=== PATIENT | male | born 1930 | race Caucasian/White ===

== ENCOUNTER 2018-04-01 08:17 | Day surgery (SDC) | payer OTHER ==
--- NOTE | 2018-03-28 11:28 | RAD REPORT ---
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 COMPARISON: Chest Single View dated 11/20/2016; CHEST PA AND LAT 2 VIEW dated 01/03/2011; CHEST PA AND LAT 2 VIEW dated 06/20/2001 FINDINGS: The lungs are clear. The heart is mildly prominent size with sternotomy wires present. No displaced fractures. IMPRESSION: No acute or concerning finding suspected.
[2018-03-28 11:30] LABS: Absolute Lymphocytes (CBC) 1.5 K/uL (0.7-4.9); Absolute Monocytes 0.6 K/uL (0.1-1.3); Absolute Neutrophil 4.9 K/uL (1.8-8.0); Basophils % 1.2 % (0-1.3); Eosinophils % 1.6 % (0-4.4); Hematocrit 44.4 % (39.6-49.0); Lymphocytes % 20.6 % (15.3-44.8); MCH 29.8 pg (27.0-35.0); MPV 8.7 fL (7.6-11.3); Monocytes % 8.6 % (3.3-12.3); RBC Red Blood Cell Count 5.05 M/uL (4.33-5.43)
[2018-03-28 11:42] LABS: Protime INR 0.96
[2018-03-28 11:57] LABS: Potassium 4.3 mmol/L (3.5-5.1)
--- NOTE | 2018-03-28 14:26 | EKG ---
Test Date: 2018-03-28 Test Time: 11:31:13 Cuffer: NEGRA MEASUREMENT RESULTS: Intervals: Rate: 61 SD: 190 QRSD: 146 QT: 448 QTc: 450 [place]: P: 38 SD: 190 QRS: -53 T: -5 INTERPRETIVE STATEMENTS: Normal sinus rhythm Right bundle branch block Left anterior fascicular block Bifascicular block Abnormal ECG Compared to ECG 11/20/2016 02:29:02 Myocardial infarct finding no longer present Bifascicular block still present Electronically Signed On 03-28-18 14:25:55 CDT by Nelson Marti
[2018-04-01] MEDS ORDERED: NA CHLORIDE 0.9% 500 ML ONE (08:57)
[2018-04-01] MEDS ORDERED: FENTANYL CITR 100 MCG/2 ML ONE (10:52)
[2018-04-01] MEDS ORDERED: ATROPINE SULF 1 MG/10 ML SYR IV ONE (10:52)
[2018-04-01] MEDS ORDERED: MIDAZOLAM HCL 2 MG/2 ML INJ ONE (10:52)
[2018-04-01] MEDS ORDERED: NA CHLORIDE 0.9% 0 ML ONE (10:52)
--- NOTE | 2018-04-01 22:28 | OP ---
Surgeon: Jamil Kong MD Indications: Admitted as an outpatient to my service to have an abdominal angiogram with heart cierra terization because of coronary artery disease and abdominal aortic aneurysm. Procedure Note: Mr. Garza is 87. He was brought to the slabber as an outpatient, prepped and drape d in the routine sterile fashion, given 2 mg of Versed for IV sedation. Right common femoral artery access was obtained with a 6-Sami sheath. Selective coronary arteriogram was performed with Judkin s catheter left and right. He was found to have 100% occlusion of his LAD, 100% occlusion of the RCA , 70% left main. The RCA catheter 6-Sami Damaris was used to cannulate the SONG. The SONG was pat ent. They were small distal to the anastomosis side in the LAD zone. There was some diffuse disease . The graft to the OM was patent. RCA was 100%. There were collaterals to the PDA from the left sy stem and the circ system. The right coronary artery is nondominant. Abdominal angiogram was done th en selectively using a pigtail above the renals. The renals were normal. There was a large aneurysm extending approximately from the renal down to the iliac about 12 cm long. 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 Measurements are pending. There were no complications or blood loss. Total conscious sedation was 45 minutes. Postoperative Diagnosis: Severe coronary artery disease, severe abdominal aortic aneurysm 6.1 x 5.4 by ultrasound testing. Plan: Plan is for possible EVAR versus surgical abdominal aortic aneurysm repair. Operators: Jamil Kong M.D. and Lelo Keating. The case will be discussed with the family and the patient. A CD will be given to the patient. NATALIE/GARLAND Voice ID: [id number] Report ID: [id number]
== END 2018-04-01 14:09 | disposition home or self-care (01) ==
LOC: CCL 08:17
DX: I71.4 Abdominal aortic aneurysm, without rupture (principal); I25.10 Atherosclerotic heart disease of native coronary artery without angina pectoris; I25.82 Chronic total occlusion of coronary artery; I65.22 Occlusion and stenosis of left carotid artery; E78.6 Lipoprotein deficiency; K21.9 Gastro-esophageal reflux disease without esophagitis; Z95.1 Presence of aortocoronary bypass graft; Z87.891 Personal history of nicotine dependence
CPT/HCPCS: 36415; 71046; 75630; 80048; 85025; 85610; 85730; 93005; 93455; C1893; J2250; J3010; 36200; J0583

== ENCOUNTER 2018-08-25 06:15 | Day surgery (SDC) | payer OTHER ==
--- OUTSIDE RECORDS SUMMARY | 2018-08-25 06:38 | XMS REPORT | Clinical Summary ---
:1930 Author Organization [facility] Address [address] [place] [address] Care Team Providers Name Role Phone Unavailable Primary Care Provider Unavailable Allergies No Known Allergies Medications Medication Sig Dispensed Refills Start Date End Date Status aspirin 81 MG chewable Take 81 mg by 0 Active tablet mouth daily. ranitidine (ZANTAC) 150 Take 150 mg by 0 Active MG capsule mouth daily. simvastatin (ZOCOR) 20 Take 20 mg by 0 Active MG tablet mouth nightly. metoprolol (TOPROL-XL) Take 50 mg by 0 Active 50 MG 24 hr tablet mouth daily. Active Problems Not on file Encounters Date Type Specialty Care Team Description 07/29/2018 Hospital Encounter Radiology Carson Rocha, Abdominal aortic aneurysm (AAA) without rupture (HCC) 07/28/2018 Outside Orders Carson Rocha Abdominal aortic aneurysm (AAA) without rupture (HCC) (Primary Dx) after 08/24/2017 Social History Tobacco Use Types Packs/Day Years Used Date Never Assessed Sex Assigned at Date Recorded Not on file Job Start Date Occupation Industry Not on file Not on file Not on file Travel History Travel Start Travel End No recent travel history available. Last Filed Vital Signs Not on file Plan of Treatment Date Type Specialty Care Team Description 09/02/2018 Hospital Encounter Diego Newman MD [address] [place] [address] 09/02/2018 Surgery Diego Newman EVAR EXCLUSION [facility] - MD [place] PROC ONLY [address] [place] [address] Procedures Procedure Name Priority Date/Time Associated Diagnosis Comments CT/CTA ABDOMEN & Routine 07/29/2018 2:20 PM Results for this PELVIS BED MAKER procedure are in the results section. POCT-CREATININE Routine 07/29/2018 2:13 PM Results for this BED MAKER procedure are in the results section. after 08/24/2017 Results CTA abdomen & pelvis (07/29/2018 2:20 PM BED MAKER) Narrative Performed At Addendum Begins [facility] REPORT STATUS:A I have reviewed the non-vascular findings, and agree with Dr. Green's interpretation. In addition, note is made of colonic diverticulosis, most pronounced in the sigmoid colon. Signed: George Cantor MD Report Verified Date/Time:07/30/2018 10:20:04 Reading Location: [address] Ortho Consult Reading Room Addendum Ends FINAL REPORT CTA of the abdomen and pelvis dated 07/29/2018 2:24 PM Comparison:None available History:88 years old Male with abdominal aortic aneurysm for planning endovascular stent placement, the study is performed to avoid invasive procedure. TECHNIQUE: Spiral acquisition before and during intravenous contrast administration using a [place] CT 660 CT scanner. Images were obtained before and during the dynamic passage of intravenous contrast material.Multi-planar 3-D volume-rendering reconstruction was performed using an independent workstation interactively by the interpreting physician as well as the 3-D specialist for optimal visualization of the abdominal aorta and the pelvic arteries as well as its proximal branches. Please refer to the contrast sheet scanned in the EPIC system for the amount and route of contrast given. This exam was performed according to our departmental dose-optimization programme, which includes automated exposure control, adjustment of the mA and/or kV according to patient size and/or use of iterative reconstruction technique. Dose modulation, iterative reconstruction, and/or weight based adjustment of the mA/kV was utilized to reduce the radiation dose to as low as reasonably achievable. RESULT: Potential study limitations: None. LIMITED CHEST: The visualized chest wall is unremarkable.The visualized lungs reveal no acute abnormalities. VASCULAR WITH ADVANCED 3-D OFF-LINE POSTPROCESSING: The abdominal aorta is normal in course with moderate diffuse calcific atherosclerotic changes near the mesenteric and renal segments. Aneurysmal infrarenal abdominal aorta with partially thrombosed lumen, measuring 5.7 x 6.1 cm at its maximal diameter. There is no acute aortic pathology. The abdominal aorta measures: 2.5 x 2.7 cm at the supra-mesenteric segment 2.2 x 2.6 cm at the mesenteric segment 2.6 x 2.6 cm at the renal segment 5.7 x 6.1 cm at the mid infrarenal segment 1.9 x 2.6 cm at the aortic bifurcation The celiac axis, SMA, and YENY are patent.There are single renal arteries bilaterally, both of which appear patent. Pelvic arteries are moderately tortuous with mild to moderate calcification predominantly involving the common iliac arteries. The right common iliac artery has moderate eccentric atherosclerotic changes with a minimal luminal diameter measuring 0.7 x 1.1 cm. Beyond this segment of the right common iliac, external iliac and right common femoral arteries are normal in caliber with minimal calcific atherosclerotic changes. The proximal segment of the left common iliac artery is aneurysmal measuring 2.3 x 2.4 cm. Beyond this segment the left common iliac, external iliac and left common femoral arteries are normal in caliber with minimal calcific atherosclerotic changes Minimal pelvic vessel calibers are as follows: *0.7 x 1.1 cm at the right common iliac artery *2.3 x 2.4 cm at the left common iliac artery *0.9 x 0.9 cm at the right external iliac artery *0.9 x 0.9 cm at the left external iliac artery The celiac axis, SMA, and YENY are patent.There are single renal arteries bilaterally, both of which appear patent. 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 ABDOMEN: The liver, gallbladder, spleen, and pancreas appear normal. Evidence of prior cholecystectomy with associated surgical clips. The adrenal glands appear normal.Both kidneys are normal in size, shape, and density.There is no abnormal mass or hydronephrosis. PELVIS: There is no significant retroperitoneal adenopathy.No free fluid or free air within the abdomen or pelvis. The bowel appears unremarkable on this non-GI contrast examination. The urinary bladder appears normal.There are scattered phleboliths within the deep pelvis. Enlarged prostate gland with mild punctate calcification. IMPRESSION: 1.The abdominal aorta is normal in course with moderate diffuse calcific atherosclerotic changes near the mesenteric and renal segments. Aneurysmal infrarenal abdominal aorta with partially thrombosed lumen, measuring 5.7 x 6.1 cm at its maximal diameter. There is no acute aortic pathology.No acute abdominal aortic pathology. 2. The right common iliac artery has moderate eccentric atherosclerotic changes with a minimal luminal diameter measuring 0.7 x 1.1 cm 3. The proximal segment of the left common iliac artery is aneurysmal measuring 2.3 x 2.4 cm. 4. 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 An addendum will be dictated regarding the non-vascular findings as the Marine Services Technician Radiologist. Signed: Gunnar Green MD Report Verified Date/Time:07/29/2018 17:30:35 Reading Location: [facility] [id number] Cardiology MRI Procedure Note Interface, External Ris In - 07/30/2018 10:22 AM BED MAKER Addendum Begins REPORT STATUS:A I have reviewed the non-vascular findings, and agree with Dr. Green's interpretation. In addition, note is made of colonic diverticulosis, most pronounced in the sigmoid colon. Signed: George Cantor MD Report Verified Date/Time: 07/30/2018 10:20:04 Reading Location: [facility] [id number] Ortho Consult Reading Room Addendum Ends FINAL REPORT CTA of the abdomen and pelvis dated 07/29/2018 2:24 PM Comparison: None available History: 88 years old Male with abdominal aortic aneurysm for planning endovascular stent placement, the study is performed to avoid invasive procedure. TECHNIQUE: Spiral acquisition before and during intravenous contrast administration using a [place] CT [address] scanner. Images were obtained before and during the dynamic passage of intravenous contrast material. Multi-planar 3-D volume-rendering reconstruction was performed using an independent workstation interactively by the interpreting physician as well as the 3-D specialist for optimal visualization of the abdominal aorta and the pelvic arteries as well as its proximal branches. Please refer to the contrast sheet scanned in the EPIC system for the amount and route of contrast given. This exam was performed according to our departmental dose-optimization programme, which includes automated exposure control, adjustment of the mA and/or kV according to patient size and/or use of iterative reconstruction technique. Dose modulation, iterative reconstruction, and/or weight based adjustment of the mA/kV was utilized to reduce the radiation dose to as low as reasonably achievable. RESULT: Potential study limitations: None. LIMITED CHEST: The visualized chest wall is unremarkable. The visualized lungs reveal no acute abnormalities. VASCULAR WITH ADVANCED 3-D OFF-LINE POSTPROCESSING: The abdominal aorta is normal in course with moderate diffuse calcific atherosclerotic changes near the mesenteric and renal segments. Aneurysmal infrarenal abdominal aorta with partially thrombosed lumen, measuring 5.7 x 6.1 cm at its maximal diameter. There is no acute aortic pathology. The abdominal aorta measures: 2.5 x 2.7 cm at the supra-mesenteric segment 2.2 x 2.6 cm at the mesenteric segment 2.6 x 2.6 cm at the renal segment 5.7 x 6.1 cm at the mid infrarenal segment 1.9 x 2.6 cm at the aortic bifurcation The celiac axis, SMA, and YENY are patent. There are single renal arteries bilaterally, both of which appear patent. Pelvic arteries are moderately tortuous with mild to moderate calcification predominantly involving the common iliac arteries. The right common iliac artery has moderate eccentric atherosclerotic changes with a minimal luminal diameter measuring 0.7 x 1.1 cm. Beyond this segment of the right common iliac, external iliac and right common femoral arteries are normal in caliber with minimal calcific atherosclerotic changes. The proximal segment of the left common iliac artery is aneurysmal measuring 2.3 x 2.4 cm. Beyond this segment the left common iliac, external iliac and left common femoral arteries are normal in caliber with minimal calcific atherosclerotic changes Minimal pelvic vessel calibers are as follows: *0.7 x 1.1 cm at the right common iliac artery *2.3 x 2.4 cm at the left common iliac artery *0.9 x 0.9 cm at the right external iliac artery *0.9 x 0.9 cm at the left external iliac artery The celiac axis, SMA, and YENY are patent. There are single renal arteries bilaterally, both of which appear patent. 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 ABDOMEN: The liver, gallbladder, spleen, and pancreas appear normal. Evidence of prior cholecystectomy with associated surgical clips. The adrenal glands appear normal. Both kidneys are normal in size, shape, and density. There is no abnormal mass or hydronephrosis. PELVIS: There is no significant retroperitoneal adenopathy. No free fluid or free air within the abdomen or pelvis. The bowel appears unremarkable on this non-GI contrast examination. The urinary bladder appears normal. There are scattered phleboliths within the deep pelvis. Enlarged prostate gland with mild punctate calcification. IMPRESSION: 1. The abdominal aorta is normal in course with moderate diffuse calcific atherosclerotic changes near the mesenteric and renal segments. Aneurysmal infrarenal abdominal aorta with partially thrombosed lumen, measuring 5.7 x 6.1 cm at its maximal diameter. There is no acute aortic pathology. No acute abdominal aortic pathology. 2. The right common iliac artery has moderate eccentric atherosclerotic changes with a minimal luminal diameter measuring 0.7 x 1.1 cm 3. The proximal segment of the left common iliac artery is aneurysmal measuring 2.3 x 2.4 cm. 4. 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 An addendum will be dictated regarding the non-vascular findings as the Marine Services Technician Radiologist. Signed: Gunnar Green MD Report Verified Date/Time: 07/29/2018 17:30:35 Reading Location: [place] [address] Cardiology MRI Performing Organization Address City/[facility] Phone Number GE RIS POC-Creatinine (07/29/2018 2:13 PM BED MAKER) POC-Creatinine 0.8Comment: TESTED AT [facility] 0.6 - 1.3 mg/dL [address] CENTER POC-EGFR Comment: Insufficient mL/min/1.73M2 [facility] clinical data to calculate MEDICAL [facility]ENTER estimated GFR Specimen Blood Performing Organization Address City/State[facility] Phone Number [facility] [address] [place] [address] [phone] CENTER after 08/24/2017 Insurance Payer Benefit Plan / Group Subscriber ID Type Phone Address MEDICARE MEDICARE A B xxxxxxxxxxx Medicare AETNA - MGD CARE AETNA INDEMNITY NON CONTR xxxxxxxxx Comm
--- OUTSIDE RECORDS SUMMARY | 2018-08-25 06:38 | XMS REPORT ---
:1930 [facility] Address [address] [place] [address] [address]. [address] [place] [address] Care Team Providers Name Role Phone PHIL SIMPSON Unavailable Unavailable Problems This patient has no known problems. Allergies, Adverse Reactions, Alerts This patient has no known allergies or adverse reactions. Medications This patient has no known medications. Results Test Description Test Time Test Comments Text Results Atomic Results Result Comments CT, CTA ABDOMEN 2018-07-30 10:20:00 Addendum BeginsREPORT STATUS:A I have reviewed the non-vascular findings, and agree with Dr. Green's interpretation. In addition, note is made of colonic diverticulosis, most pronounced in the sigmoid colon. Signed: George Cantor MDReport Verified Date/Time: 07/30/2018 10:20:04 Reading Location: [address] Ortho Consult Reading RoomAddendum EndsFINAL REPORT CTA of the abdomen and pelvis dated 07/29/2018 2:24 PM Comparison: None available History: 88 years old Male with abdominal aortic aneurysm for planning endovascular stent placement, the study is performed to avoid invasive procedure. TECHNIQUE: Spiral acquisition before and during intravenous contrast administration using a [place] CT [address] CT scanner. Images were obtained [...] achievable. RESULT: Potential study limitations: None. LIMITED CHEST:The visualized chest wall is unremarkable. The visualized [...] 2.5 x 2.7 cm at the supra-mesenteric segment2.2 x 2.6 cm at the mesenteric segment2.6 x 2.6 cm at the renal segment5.7 x 6.1 cm at the mid infrarenal segment1.9 x 2.6 cm at the aortic bifurcation [...] 1.1 cm at the right common iliac artery*2.3 x 2.4 cm at the left common iliac artery*0.9 x 0.9 cm at the right external iliac artery*0.9 x 0.9 cm at the left external iliac artery The celiac axis, SMA, and YENY are patent. There are single renal arteries bilaterally, both of which appear patent. 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 ABDOMEN:The liver, gallbladder, spleen, and pancreas appear normal. Evidence of prior cholecystectomy with associated surgical clips. The adrenal glands appear normal. Both kidneys are normal in size, shape, and density. There is no abnormal mass or hydronephrosis. PELVIS:There is no significant retroperitoneal adenopathy. No free fluid or free air within the abdomen or pelvis. The bowel appears unremarkable on this non-GI contrast examination. The urinary bladder appears normal. There are scattered phleboliths within the deep pelvis. Enlarged prostate gland with mild punctate calcification. IMPRESSION:1. The abdominal aorta is normal in course [...] dictated regarding the non-vascular findings as the Loom Inspector Radiologist. Signed: Gunnar Greeneport Verified Date/Time: 07/29/2018 17:30:35 Reading Location: [place] [address] Cardiology MRI -CREATININE 2018-07-29 16:29:00 Test Item Value Reference Range Comments POC-CREATININE (MEHDI) (test 0.8 mg/dL 0.6-1.3 TESTED AT [facility] [address] [facility] iola=[id number]) [facility] [address] POC-EGFR (MEHDI) (test mL/min/1.73M2 Insufficient clinical data to frhz=[id number]) calculate estimated GFR
[2018-08-25] MEDS ORDERED: LIDOCAINE 2% MPF 5 ML VIAL ONE ×2 (07:14→08:01)
[2018-08-25] MEDS ORDERED: TETRACAINE HCL 0.5% 2ML OPTH ONE (07:14)
[2018-08-25] MEDS ORDERED: BUPIVACAINE 0.25% PF 10 ML VIAL ONE (07:14)
[2018-08-25] MEDS ORDERED: NA CHLORIDE 0.9% 500 ML ONE (07:15)
[2018-08-25] MEDS ORDERED: LIDOCAINE 1% MPF 30 ML VIAL ONE (07:16)
[2018-08-25] MEDS ORDERED: LIDOCAINE 1% MPF 5 ML VIAL ONE (07:16)
[2018-08-25] MEDS: CYCLOPENTOLATE 1% OPTH 2 ML ONE ×3 (07:24→07:34)
[2018-08-25] MEDS: PHENYLEPHRINE 10% OPTH 5ML ONE ×3 (07:24→07:35)
[2018-08-25] MEDS ORDERED: PROPOFOL 200 MG/20 ML VIAL IV ONE (08:01)
[2018-08-25] MEDS ORDERED: EPINEPHRINE/PF 1 MG/ML AMP ONE ×2 (08:16→09:22)
[2018-08-25] MEDS ORDERED: NS 0.9% VIAL 10 ML ONE (08:16)
[2018-08-25] MEDS ORDERED: BALANCED SALT IRRIG PLAIN 500 ML BTL IRR ONE (08:17)
[2018-08-25] MEDS ORDERED: MOXIFLOXACIN HCL 10 DROPS/ML **OR USE OPTH ONE (08:18)
[2018-08-25] MEDS ORDERED: DUOVISC 1 KIT OPTH ONE (08:18)
--- NOTE | 2018-08-25 10:01 | P.BOP ---
Preoperative diagnosis: Nuclear sclerotic cataract OS Postoperative diagnosis: Same Primary procedure: Phacoemulsification with IOL OS Estimated blood loss: None Anesthesia: Local (Subtenon's infusion with anesthesia for cataract surgery) Complications: None Implants: [id number] +19.5 Transferred to: Other (Day surgery) Condition: Good
--- NOTE | 2018-08-25 21:58 | OP ---
Surgeon: Ambika Valverde MD Anesthesiologist: Darby Solares CRNA and Doug Robertson M.D. Preoperative Diagnosis: Nuclear sclerotic cataract, OS (left eye). Operation Performed: Phacoemulsification with intraocular lens implant, left eye. Anesthesia: Per cataract surgery. Complications: None. Description Of Procedure: In day surgery, the patient was prepped with Betadine and draped. A conjunctival incision was made in the inferior nasal quadrant with Abigail scissors. A sub-Tenon block consisting of a 1:1 mixture of 2% Xylocaine and 0.25% bupivacaine was placed through the conjunctival incision with a blunt cannula. A Honan balloon was placed over the eye and the patient was transferred to the operating room. In the operating room the patient was prepped and draped in the usual sterile fashion for ophthalmic surgery. A lid speculum was placed in the left eye. Two paracentesis sites were made superiorly and inferiorly in the limbal cornea. Viscoat was placed in the anterior chamber and a crescent blade was used to make a corneal groove and tunnel, and a keratome was used to enter the anterior chamber. Provisc was placed in the anterior chamber and a 360 degree capsulotomy was performed with a cystitome. The lens was hydrodissected with BSS and rotated freely. The lens was removed with a stop and chop technique. An 18.5 phaco CDE was used to remove the lens. Residual cortex was removed with the irrigation and aspiration. Provisc was placed in the capsular bag. A SN60WF +19.5 lens was placed in the capsular bag without complications. Irrigation and aspiration were used to remove residual viscoelastic. The paracentesis sites were hydrated with BSS. The wound and paracentesis sites were inspected and found to be watertight. Vigamox 0.07 cc was placed intracamerally at the end of the procedure. The eye was irrigated with balanced salt solution. The eye was patched with a soft cotton patch and Bautista metal shield. The patient was returned to day surgery in good condition. Comments: 1:5000 epinephrine was placed in the eye prior to Viscoat. The lens was slightly displaced nasally to decrease negative dysphotopsia. Discharge Instructions: Mr. Garza is discharged to home in good condition and is to follow up with Dr. Valverde. ALBERTO/GARLAND Voice ID: [id number] Report ID: [id number] RAZA
== END 2018-08-25 09:40 | disposition home or self-care (01) ==
LOC: OR 06:15
PROVIDERS: ATTEND Ophthalmology Retina Specialist
PROC: 08RK3JZ Replacement of Left Lens with Synthetic Substitute, Percutaneous Approach (ICD-10-PCS; principal; 2018-08-25 08:30)
DX: H25.12 Age-related nuclear cataract, left eye (principal); E78.00 Pure hypercholesterolemia, unspecified; I48.91 Unspecified atrial fibrillation; M19.90 Unspecified osteoarthritis, unspecified site; Z79.82 Long term (current) use of aspirin; Z79.899 Other long term (current) drug therapy
CPT/HCPCS: 66984; J2704; J0171 ×2

== ENCOUNTER 2021-07-19 10:30 | Day surgery (SDC) | payer OTHER ==
[2021-07-17 09:02] LABS: Absolute Lymphocytes (CBC) 1.2 K/uL (0.7-4.9); Lymphocytes % 19.3 % (15.3-44.8); MPV 8.4 fL (7.6-11.3); RBC Red Blood Cell Count 4.72 M/uL (4.33-5.43)
[2021-07-17 09:12] LABS: Potassium 4.4 mmol/L (3.5-5.1)
[2021-07-17 09:13] LABS: Protime INR 1.61
--- NOTE | 2021-07-17 10:59 | RAD REPORT ---
EXAM DESCRIPTION: RAD - Chest Pa And Lat (2 Views) - 07/17/2021 8:49 am CLINICAL HISTORY: pre op pending heart catheterization Chest pain. COMPARISON: Chest Pa And Lat (2 Views) dated 03/28/2018; Chest Single View dated 11/20/2016; CHEST PA AND LAT 2 VIEW dated 01/03/2011; CHEST PA AND LAT 2 VIEW dated 06/20/2001 FINDINGS: The lungs are clear. The heart is mildly enlarged with changes of a prior CABG. No displac ed fractures.
[~2021-07-19 10:30] MED LIST: ATROPINE SULF 1 MG/10 ML SYR IV ONE; FENTANYL CITR 100 MCG/2 ML ONE; HEPA 1000U/500MLS 1,000 UNIT/500 ML BAG IV ONE; LIDOCAINE 1% 20 ML MDV ONE; MIDAZOLAM HCL 2 MG/2 ML INJ ONE; NA CHLORIDE 0.9% 0 ML ONE; NA CHLORIDE 0.9% 500 ML ONE; NITROGLYCERIN/D5W 25 MG/250 ML BTL IV ONE
[2021-07-19] MEDS ORDERED: NA CHLORIDE 0.9% 50 ML ONE (10:33)
[2021-07-19] MEDS ORDERED: MIDAZOLAM HCL 2 MG/2 ML INJ ONE (10:55)
[2021-07-19] MEDS ORDERED: PRASUGREL (EFFIENT) 10 MG TAB ONE (12:31)
[2021-07-19] MEDS ORDERED: ASPIRIN 325 MG TAB ONE (12:32)
[2021-07-19] MEDS ORDERED: FENTANYL CITR 100 MCG/2 ML IV ONE (15:25)
[2021-07-19 15:49] VITALS: TEMP 97.4
[2021-07-19 18:32] VITALS: O2SAT 97
[2021-07-19 18:35] VITALS: BP 145/57
--- NOTE | 2021-07-23 01:15 | OP ---
Surgeon: Jamil Kong MD He was admitted to the poultry hatchery laborer as an outpatient on 07/19/2021. Reason For Admission: Unstable angina and history of coronary artery disease. Procedure In Detail: In the poultry hatchery laborer, he was prepped and draped in routine sterile fashion. Given V ersed and fentanyl for sedation. A 6-Kiswahili sheath introduced in the right common femoral artery suc cessfully using the Seldinger technique and a 10 cc of xylocaine. Pressure was held after the proced ure for hemostasis. Catheterization description. A JL4 catheter was introduced initially and that c annulated the left main. He had a completely occluded left main. A JR4 catheter was used to cannula te the RCA, which was also completely occluded, is nondominant. The JR4 catheter also cannulated the OM graft which was found to have an 80% stenosis in the middle of it with excellent distal flow in t he OM. SONG was injected and the SONG was patent to the LAD. We decided to intervene with the OM gr aft. A 3DRC 6-Kiswahili guide with side hole was used to cannulate the graft. A Barnett wire was used t o cross the lesion successfully. A 3.0 x 16 Synergy stent was placed in the graft with 0% residual. The patient tolerated the procedure well. There were no complication. He was given Angiomax, aspir in and Effient during the procedure. Anesthesia: Total conscious sedation was 60 minutes. Livestock Judging Coach was myself and discussed with Dr. Curtis. Impression And Plan: Final diagnosis: Successful primary stent of the OM graft. Severe coronary ar lilia disease. Plan: Plan is for medical therapy. We will watch him for 6 hours after bedrest after holding pressu re on the right groin, and he will go home after that. I will see him in the office in the near futu re. Continue his home medicine . I will see him in the office in 2 weeks. NATALIE/GARLAND Voice ID: [id number] Report ID: [id number]
== END 2021-07-19 18:37 | disposition home or self-care (01) ==
LOC: CCL 10:30
DX: I25.700 Atherosclerosis of coronary artery bypass graft(s), unspecified, with unstable angina pectoris (principal); I25.110 Atherosclerotic heart disease of native coronary artery with unstable angina pectoris; I25.82 Chronic total occlusion of coronary artery; I11.0 Hypertensive heart disease with heart failure; I50.32 Chronic diastolic (congestive) heart failure; I65.23 Occlusion and stenosis of bilateral carotid arteries; I35.8 Other nonrheumatic aortic valve disorders; I71.4 Abdominal aortic aneurysm, without rupture; I48.0 Paroxysmal atrial fibrillation; E78.2 Mixed hyperlipidemia; K21.9 Gastro-esophageal reflux disease without esophagitis; Z87.891 Personal history of nicotine dependence; Z20.822 Contact with and (suspected) exposure to COVID-19
CPT/HCPCS: 85025; 80048; 36415; 85610; 85347 ×9; 85730; 71046; 93455; U0003; C1893; C1725; C9604; J2250; J3010 ×2; J0583; J7040; J1644 ×3; 93459

== ENCOUNTER 2022-05-17 11:01 | Inpatient (IN) | payer OTHER ==
--- OUTSIDE RECORDS SUMMARY | 2022-05-17 11:06 | XMS REPORT | Continuity of Care Document ---
:1930 Author Organization [facility] t Address [address] [place] [address] Care Team Providers Name Role Phone No, Pcp [facility] Primary Care Physician Unavailable KJ MIJARES Attending Clinician Unavailable PHIL SIMPSON Attending Clinician Unavailable PHIL SIMPSON Admitting Clinician Unavailable Problems Condition Condition Condition Status Onset Resolution Last Treating Co mments Source Name Details Category Date Date Treatment Clinician Date Abdominal Abdominal Disease Active [facility] aneurysm aneurysm 00:00: Medica l without without 00 Center rupture rupture HLD HLD Disease Active [facility] (hyperlipi (hyperlipi 3-19 [facility] demia) demia) 00:00: Medical 00 Center Essential Essential Disease Active [facility] hypertensi hypertensi 3-19 Emy kes on on 00:00: Medical 00 Center Coronary Coronary Disease [facility] disease disease 00:00: Medical involving involving 00 Cent er jena jena coronary coronary artery artery Obesity Obesity Disease Active [facility] Allergies, Adverse Reactions, Alerts This patient has no known allergies or adverse reactions. Social History Social Habit Start Date Stop Date Quantity Comments Source History SDOH [facility] Alcohol Std Drinks Medica l Center History SDOH [facility] Alcohol Binge Medical [address] [facility] Alcohol intake 2018-09-03 2018-09-03 [facility] (finding) Tobacco Comment 2018-09-01 2018-09-01 quit [place] [address] [facility] 00:00:00 00:00:00 [facility] Alcohol Comment 2018-09-01 2018-09-[address] [facility] 00:00:00 00:00:00 [facility] Tobacco use and 2018-09-01 2018-09-[address] [facility] exposure 00:00:00 00:00:00 Medical Center History SDOH 2018-09-01 2018-09-[address] [facility] Alcohol Frequency 00:00:00 00:00:00 [facility] Sex Assigned At [birth year] [facility] 00[facility]00 [facility] Smoking Status Start Date Stop Date Source Tobacco smoking [facility] consumption unknown Former smoker 2018-09-01 00:00:00 2018-09-[address] [facility] 00:[facility]:00 Center Medications Ordered Filled Start Stop Current Ordering Indication Dosage Frequency Signature Comments Components Source Medication Medication Date Date Medication? Clinician (SIG) Name Name aspirin 81 Yes 81mg QD Take [address] MG chewable 3-20 by mouth Luke s tablet 13:46: daily. [address] ranitidine Yes 150mg QD Take [address] (ZANTAC) 3-20 mg by [facility] 150 MG 13:46: mouth Medical capsule 16 daily. [facility] simvastatin Yes 20mg QD Take [address] (ZOCOR) 20 3-20 by mouth [facility] MG tablet 13:46: nightly. [address] metoprolol Yes 100mg QD Take [address] (TOPROL-XL) 3-20 mg by [facility] 100 MG 24 13:46: mouth Medical hr tablet 16 daily. [facility] nepafenac Yes Apply to [facility] (ILEVRO) 3-20 eye(s). [facility] 0.3 % DrpS 13:46: [address] prednisoLON Yes 1[drp] Q.25D [address] E acetate 3-20 (four) [facility] (PRED 13:46: times Medical FORTE) 1 % 16 daily. Center ophthalmic suspension Procedures This patient has no known procedures. Plan of Care Planned Activity Planned Date Details Comments Source Future Scheduled 2022-04-20 HEPATITIS B VACCINES Met [facility] Test 12:55:54 (1 of 3 - 3-dose series) [code = HEPATITIS B VACCINES (1 of 3 - 3-dose series)] Future Scheduled 2022-04-20 COVID-19 VACCINE (#1) [facility] Test 12:55:54 [code = COVID-19 VACCINE (#1)] Future Scheduled 2022-04-20 SHINGLES VACCINES (1 [facility] Test 12:55:54 of 2) [code = SHINGLES VACCINES (1 of 2)] Future Scheduled 2022-04-20 65+ [facility] 12:55:54 VACCINE (1 - PCV) [code = 65+ PNEUMOCOCCAL VACCINE (1 - PCV)] Future Scheduled 2022-04-20 INFLUENZA VACCINE Method [facility] Test 12:55:54 [code = INFLUENZA VACCINE] Results Test Description Test Time Test Comments Results Result Comments Source [facility] 2018-09-03 04:56:00 Test Item Value Reference Range Interpretation Comme nts MAGNESIUM (BEAKER) (test code = 627) 1.9 mg/dL 1.6-2.6 CBC W/PLT COUNT & AUTO [id number] 04:44:00 Test Item Value Reference Range Interpretation Comments WHITE BLOOD CELL COUNT (BEAKER) 10.8 K/ L 3.5-10.5 H (test code = 775) RED BLOOD CELL COUNT (BEAKER) 3.56 M/ L 4.63-6.08 L (test code = 761) HEMOGLOBIN (BEAKER) (test code = 10.4 GM/DL 13.7-17.5 L 410) HEMATOCRIT (BEAKER) (test code = 32.4 % 40.1-51.0 L 411) MEAN CORPUSCULAR VOLUME (BEAKER) 91.0 fL 79.0-92.2 (test code = 753) MEAN CORPUSCULAR HEMOGLOBIN 29.2 pg 25.7-32.2 (BEAKER) (test code = 751) MEAN CORPUSCULAR HEMOGLOBIN CONC 32.1 GM/DL 32.3-36.5 L (BEAKER) (test code = 752) RED CELL DISTRIBUTION WIDTH 12.7 % 11.6-14.4 (BEAKER) (test code = 412) PLATELET COUNT (BEAKER) (test 146 K/CU MM 150-450 L code = 756) MEAN PLATELET VOLUME (BEAKER) 10.7 fL 9.4-12.4 (test code = 754) NUCLEATED RED BLOOD CELLS 0 /100 WBC 0-0 (BEAKER) (test code = 413) NEUTROPHILS RELATIVE PERCENT 80 % (BEAKER) (test code = 429) LYMPHOCYTES RELATIVE PERCENT 9 % (BEAKER) (test code = 430) MONOCYTES RELATIVE PERCENT 10 % (BEAKER) (test code = 431) EOSINOPHILS RELATIVE PERCENT 0 % (BEAKER) (test code = 432) BASOPHILS RELATIVE PERCENT 0 % (BEAKER) (test code = 437) NEUTROPHILS ABSOLUTE COUNT 8.68 K/ L 1.78-5.38 H (BEAKER) (test code = 670) LYMPHOCYTES ABSOLUTE COUNT 0.99 K/ L 1.32-3.57 L (BEAKER) (test code = 414) MONOCYTES ABSOLUTE COUNT (BEAKER) 1.07 K/ L 0.30-0.82 H (test code = 415) EOSINOPHILS ABSOLUTE COUNT 0.00 K/ L 0.04-0.54 L (BEAKER) (test code = 416) BASOPHILS ABSOLUTE COUNT (BEAKER) 0.04 K/ L 0.01-0.08 (test code = 417) IMMATURE GRANULOCYTES-RELATIVE 1 % 0-1 PERCENT (BEAKER) (test code = 2801) [id number] 11:07:00 Test Item Value Reference Range Interpretation Comments ACTIVATED CLOTTING TIME 230 sec TEST ED AT [place] [address] ([facility]) (test code = [place] [address]) [id number] 10:41:00 Test Item Value Reference Range Interpretation Comments ACTIVATED CLOTTING TIME 246 sec TEST ED AT [place] [address] ([facility]) (test code = [place] [address]) [id number] 10:14:00 Test Item Value Reference Range Interpretation Comments ACTIVATED CLOTTING TIME 257 sec TEST ED AT [place] [address] ([facility]) (test code = [place] [address]) [id number] 10:14:00 Test Item Value Reference Range Interpretation Comments ACTIVATED CLOTTING TIME 235 sec TEST ED AT [place] [address] ([facility]) (test code = [place] [address]) [id number] 09:50:00 Test Item Value Reference Range Interpretation Comments ACTIVATED CLOTTING TIME 213 sec TEST ED AT [facility] 67[address] (BEAKER) (test code = [place] [address]) [id number] BASIC METABOLIC [id number] 13:04:00 Test Item Value Reference Range Interpretation Comments SODIUM (BEAKER) 142 meq/L 136-145 (test code = 381) POTASSIUM (BEAKER) 4.9 meq/L 3.5-5.1 (test code = 379) CHLORIDE (BEAKER) 105 meq/L 98-107 (test code = 382) CO2 (BEAKER) (test 29 meq/L 22-29 code = 355) BLOOD UREA NITROGEN 10 mg/dL 7-21 (BEAKER) (test code = 354) CREATININE (BEAKER) 0.83 mg/dL 0.57-1.25 (test code = 358) GLUCOSE RANDOM 101 mg/dL 70-105 (BEAKER) (test code = 652) CALCIUM (BEAKER) 9.9 mg/dL 8.4-10.2 (test code = 697) EGFR (BEAKER) (test mL/min/1.73 INSUFFIC IENT CLINICAL code = 1092) sq m DATA TO CALCULA TE ESTIMATED GFR. LIPID [id number] 13:02:00 Test Item Value Reference Range Interpretation Comments TRIGLYCERIDES (BEAKER) (test code = 106 mg/dL 540) CHOLESTEROL (BEAKER) (test code = 164 mg/dL 631) HDL CHOLESTEROL (BEAKER) (test code 39 mg/dL = 976) LDL CHOLESTEROL CALCULATED (BEAKER) 104 mg/dL (test code = 633) Triglyceride Reference Range: Low Risk <150 Borderline 150-199 High Risk 200- 499 Very High Risk >=500Cholesterol Reference Range: Low Risk <200 Borderline 200-239 High Risk >240HDL Cholesterol Reference Range: Low Risk >=60 High Risk <40LDL Cholesterol Reference Range: Optimal <100 Near Optimal 100-129 Borderline 130-159 High 160-189 Very High >=190CBC W/PLT COUNT & AUTO [id number] 12:40:00 Test Item Value Reference Range Interpretation Comments WHITE BLOOD CELL COUNT (BEAKER) 6.3 K/ L 3.5-10.5 (test code = 775) RED BLOOD CELL COUNT (BEAKER) 5.15 M/ L 4.63-6.08 (test code = 761) HEMOGLOBIN (BEAKER) (test code = 14.9 GM/DL 13.7-17.5 410) HEMATOCRIT (BEAKER) (test code = 47.1 % 40.1-51.0 411) MEAN CORPUSCULAR VOLUME (BEAKER) 91.5 fL 79.0-92.2 (test code = 753) MEAN CORPUSCULAR HEMOGLOBIN 28.9 pg 25.7-32.2 (BEAKER) (test code = 751) MEAN CORPUSCULAR HEMOGLOBIN CONC 31.6 GM/DL 32.3-36.5 L (BEAKER) (test code = 752) RED CELL DISTRIBUTION WIDTH 12.8 % 11.6-14.4 (BEAKER) (test code = 412) PLATELET COUNT (BEAKER) (test 192 K/CU MM 150-450 code = 756) MEAN PLATELET VOLUME (BEAKER) 10.5 fL 9.4-12.4 (test code = 754) NUCLEATED RED BLOOD CELLS 0 /100 WBC 0-0 (BEAKER) (test code = 413) NEUTROPHILS RELATIVE PERCENT 61 % (BEAKER) (test code = 429) LYMPHOCYTES RELATIVE PERCENT 25 % (BEAKER) (test code = 430) MONOCYTES RELATIVE PERCENT 9 % (BEAKER) (test code = 431) EOSINOPHILS RELATIVE PERCENT 3 % (BEAKER) (test code = 432) BASOPHILS RELATIVE PERCENT 2 % (BEAKER) (test code = 437) NEUTROPHILS ABSOLUTE COUNT 3.86 K/ L 1.78-5.38 (BEAKER) (test code = 670) LYMPHOCYTES ABSOLUTE COUNT 1.57 K/ L 1.32-3.57 (BEAKER) (test code = 414) MONOCYTES ABSOLUTE COUNT (BEAKER) 0.55 K/ L 0.30-0.82 (test code = 415) EOSINOPHILS ABSOLUTE COUNT 0.16 K/ L 0.04-0.54 (BEAKER) (test code = 416) BASOPHILS ABSOLUTE COUNT (BEAKER) 0.11 K/ L 0.01-0.08 H (test code = 417) IMMATURE GRANULOCYTES-RELATIVE 1 % 0-1 PERCENT (BEAKER) (test code = 2801) CT, CTA [id number] 10:20:00Addendum BeginsREPORT STATUS:A I have reviewed the non-vascular findings, and agree with Dr. Green's interpretation. In addition, note is made of colonic diverticulosis, most prono unced in the sigmoid colon. Signed: George Cantor MDReport Verified Date/Time: 07/30/2018 10:20:04 Reading Location: [address] Ortho Consult Reading RoomAddendum EndsFINAL REPORT CTAof the abdomen and pelvis dated 07/29/2018 2:24 PM Comparison: None available History: 88 years old Male with abdominal aortic aneurysm for planning endovascular stent placement, the study is performed to avoid invasive procedure. TECHNIQUE: Spiral acquisition before and during intravenous contrast administration using a [place] CT [address] CT scanner. Images were obtained [...] EPIC system for the amount and route ofcontrast given. This exam was performed according to our departmental dose- optimization programme, which includes automated exposure control, adjustment of the mA and/or kV according to patient size and/or use of iterative reconstruction technique. Dose modulation, iterative reconstruction, and/or weig ht based adjustment of the mA/kV was utilized [...] the mid infrarenal segment1.9 x 2.6 cm atthe aortic bifurcation The celiac axis, SMA, and YENY are patent. There are single renal arteries bilaterally, both of which appear patent. Pelvic arteries are moderately tortuous with mild to moderate c alcification predominantly involving the common iliac arteries. The [...] Beyond this segment the left common iliac, externaliliac and left common femoral arteries are normal [...] near the mesenteric and renal segments. 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 Signed: Gunnar Green Verified Date/Time: 07/29/2018 17:30:35 Reading Location: [place] [address] Cardiology MRI [id number] 16:29:00 Test Item Value Reference Range Interpretation Comments POC-CREATININE 0.8 mg/dL 0.6-1.[address] [facility] [address] ([facility]) (test [place] code = 9949) [address] POC-EGFR mL/min/1.73M2 Insufficient clinical ([facility]) (test data to calcu late code = 1860) estimated GFR
[2022-05-17 11:38] LABS: Absolute Lymphocytes (CBC) 1.4 K/uL (0.7-4.9); Hematocrit 42.1 % (39.6-49.0); Lymphocytes % 19.1 % (15.3-44.8); MCV 88.1 fL (80-100); MPV 8.6 fL (7.6-11.3); RBC Red Blood Cell Count 4.78 M/uL (4.33-5.43)
[2022-05-17] MEDS ORDERED: ASPIRIN 325 MG TAB ONE (11:40)
[2022-05-17 11:59] LABS: Albumin 3.6 g/dL (3.4-5.0); Bilirubin Direct 0.2 mg/dL (0-0.2); Bilirubin Total 0.7 mg/dL (0.2-1.0); Protein, Total 7.2 g/dL (6.4-8.2); Troponin High Sensitivity 13.3 pg/mL (<58.9)
--- NOTE | 2022-05-17 12:26 | RAD REPORT ---
EXAM DESCRIPTION: Yoni Single View05/17/2022 12:18 pm CLINICAL HISTORY: Chest pain COMPARISON: June 2021 FINDINGS: Left base is hazy The remainder of the lungs appear clear of acute infiltrate. The heart is mildly enlarged. Postsurgical changes involve the chest IMPRESSION: Left base is hazy which could be secondary to overlying soft tissue or infiltrate. PA an d lateral chest series recommended
[2022-05-17] MEDS ORDERED: MAGNESIUM HYDROXIDE 8% 30 ML PO PRN (13:41)
[2022-05-17] MEDS ORDERED: ACETAMINOPHEN 500 MG TAB PO PRN (13:41)
[2022-05-17 14:09] LABS: SARS-COV-2 RT PCR NEGATIVE (NEGATIVE)
--- NOTE | 2022-05-17 15:09 | RAD REPORT ---
EXAM DESCRIPTION: CT - Angio Aorta For Dissection - 05/17/2022 2:42 pm CLINICAL HISTORY: Chest pain radiating to the back. chest pain COMPARISON: No comparisons TECHNIQUE: CT angiography of the aorta was performed with MIPs. All CT scans are performed using dose optimization technique as appropriate and may include automated exposure control or mA/KV adjustment according to patient size. FINDINGS: A left aortic arch is present with normal branching pattern of the great vessels.No acute aortic finding is seen such as aneurysm, penetrating ulcer or dissection. Aortic stent graft is in pl sulaiman within the abdominal aorta. No abnormality related to this is visualized. The celiac axis, SMA, I MA and renal arteries demonstrate ostial atherosclerosis without occlusion or high-grade stenosis. . No evidence of pulmonary embolism. The lungs are clear. Mild fatty liver is present. Small cyst is seen anterior left lobe of the liver. Cholecystectomy clip s. The spleen, pancreas, adrenal glands and kidneys are within normal limits. 4 cm cyst is present pr ojecting off of the posterior right kidney. No bowel obstruction, free fluid or abscess.Normal appendix. Moderate sigmoid diverticulosis without diverticulitis.No pathologic enlarged lymphadenopathy identified. Mild lumbar degenerative changes. IMPRESSION: No acute aortic finding is demonstrated.
--- NOTE | 2022-05-17 15:25 | P.HP ---
Certification for Inpatient Patient admitted to: Observation With expected LOS: <2 Midnights Patient will require the following post-hospital care: None Practitioner: I am a practitioner with admitting privileges, knowledge of patient current condition, hospital course, and medical plan of care. Services: Services provided to patient in accordance with Admission requirements found in Title 42 Section 412.3 of the Code of Federal Regulations Patient History Date of Service: 05/17/22 Reason for admission: chest pain that awoke pt from sleep History of Present Illness: Mr. Garza is an 89 yo gentleman with a history of CAD, aneurysm repair, a. fib that no longer has a PCP. At 0300 he had left upper back, arm, shoulder pain that was so severe it awoke him from sleep and "took his breath". Pt called Dr. Kong's office and was directed to the ED. Pt to be admitted for chest pain evaluation. Allergies No Known Allergies Allergy (Verified 07/17/21 08:17) Home medications list reviewed: Yes Home Medications: Metoprolol Succinate [Toprol Xl*] 100 mg PO DAILY AFTER SUPPER 08/22/18 Atorvastatin Calcium [Lipitor] 20 mg PO BEDTIME 07/17/21 Ranitidine [Zantac] 150 mg PO PRN PRN 07/17/21 Rivaroxaban [Xarelto] 20 mg PO DAILY AFTER SUPPER 07/17/21 Clopidogrel Bisulfate [Plavix] 75 mg PO 05/17/22 - Past Medical/Surgical History Has patient received pneumonia vaccine in the past: No Diabetic: No -: CAD, CABG -: GERD -: Hyperlipidemia -: Aneurysm repair -: CABG -: Cholecystectomy Psychosocial/ Personal History: He is a . He is currently living with a lady friend. He has children. - Family History Family History: Reviewed- Non-Contributory - Family History Brother -: Cancer (Brain tumor) - Social History Smoking Status: Never smoker Alcohol use: Yes CD- Drugs: No Caffeine use: Yes Place of Residence: Home Review of Systems General: Unremarkable Eyes: Unremarkable ENT: Unremarkable Respiratory: Shortness of Breath, Other (during chest pain) Cardiovascular: Chest Pain Genitourinary: Unremarkable Musculoskeletal: Unremarkable Integumentary: Unremarkable Neurological: Unremarkable Physical Examination - Vital Signs Temperature: 98.6 F Blood Pressure: 157/79 Pulse: 66 Respirations: 21 Pulse Ox (%): 100 - Physical Exam General: Alert, In no apparent distress, Oriented x3 HEENT: Normocephalic, Other (scrape to left frontal area) Neck: Supple, JVD not distended Respiratory: Clear to auscultation bilaterally, Normal air movement Cardiovascular: Irregular heart rate/rhythm Capillary refill: <2 Seconds Gastrointestinal: Normal bowel sounds Musculoskeletal: Other (shoulder pain) Integumentary: Tenderness/swelling, Other (scrape to forehead) Neurological: Normal speech, Normal strength at 5/5 x4 extr, Normal tone Lymphatics: No axilla or inguinal lymphadenopathy External genitalia: Deferred Rectal: Deferred - Studies Laboratory Data (last 24 hrs) 05/17/22 11:25: Total Bilirubin 0.7, AST 19, ALT 22, Alkaline Phosphatase 60 05/17/22 11:25: WBC 7.20, Hgb 14.1, Hct 42.1, Plt Count 198 05/17/22 11:25: Sodium 138, Potassium 4.0, BUN 15, Creatinine 0.97, Glucose 113 H Assessment and Plan - Problems (Diagnosis) (1) Unstable angina pectoris due to coronary arteriosclerosis Onset Date: ~05/17/22 Current Visit: Yes Status: Acute Plan: Serial enzymes, tele, continue Plavix, Xarelto, Consult Dr. Kong Discharge Plan: Home Plan to discharge in: 24 Hours - Advance Directives Does patient have a Living Will: No Does patient have a Durable POA for Healthcare: No Comments: Sandip Inman [phone]; [phone]. Joce Garza [phone] - Code Status/Comfort Care Code Status Assessed: Yes Code Status: Full Code Time Spent Managing Pts Care (In Minutes): 70
--- NOTE | 2022-05-17 15:30 | ER ---
Nurse's Notes [facility] Name: Vidal Garza Age: 89 yrs Sex: Male : 1930 Arrival Date: 05/17/2022 Time: 11:02 Bed 2 Private MD: Jamil Kong S Diagnosis: Unstable angina Presentation: 05/17 11:08 Chief complaint: Patient states: Reports a severe sharp pain in left chest last night - ld1 radiated to underneath left shoulder blade and left arm. Pt reports heart being sore at this moment. Coronavirus screen: At this time, the client does not indicate any symptoms associated with coronavirus-19. Ebola Screen: No symptoms or risks identified at this time. Initial Sepsis Screen: Does the patient meet any 2 criteria? No. Patient's initial sepsis screen is negative. Does the patient have a suspected source of infection? No. Patient's initial sepsis screen is negative. Risk Assessment: Do you want to hurt yourself or someone else? Patient reports no desire to harm self or others. Onset of symptoms was May 17, 2022. 11:08 Method Of Arrival: Ambulatory ld1 11:08 Acuity: FRANCO 3 ld1 Triage Assessment: 11:06 General: Appears in no apparent distress. comfortable, Behavior is calm, cooperative, ld1 agitated. Pain: Denies pain. Pain: Complains of pain in chest Pain radiates to left subscapular area and left arm Pain currently is 0 out of 10 on a pain scale. at worst was 10 out of 10 on a pain scale. Quality of pain is described as throbbing. Pain: Quality of pain is described as sharp, shooting, Pain began suddenly, Is intermittent. EENT: No signs and/or symptoms were reported regarding the EENT system. Neuro: Level of Consciousness is awake, alert, obeys commands, Oriented to person, place, time, situation. Neuro: Level of Consciousness is. Cardiovascular: Reports Cardiovascular: Capillary refill < 3 seconds Patient's skin is warm and dry. Respiratory: Airway is patent Respiratory effort is even, unlabored. GI: Abdomen is round non-distended. : No signs and/or symptoms were reported regarding the genitourinary system. Derm: No signs and/or symptoms reported regarding the dermatologic system. Musculoskeletal: No signs and/or symptoms reported regarding the musculoskeletal system. Historical: - Allergies: 11:06 No Known Allergies; ld1 - Home Meds: 11:10 Plavix 75 mg Oral tab 1 tab once daily [Active]; Xarelto 1 mg/mL oral susr 10 mL once ld1 daily [Active]; - PMHx: 11:06 Hyperlipidemia; ld1 11:10 Atrial fibrillation; ld1 - PSHx: 11:06 None; ld1 - Immunization history:: Adult Immunizations up to date, Client reports receiving the 2nd dose of the Covid vaccine. - Social history:: Smoking status: Patient denies any tobacco usage or history of. Patient uses alcohol, occasionally. Screenin:10 Abuse screen: Denies threats or abuse. Denies injuries from another. Nutritional bp screening: No deficits noted. Tuberculosis screening: No symptoms or risk factors identified. Fall Risk None identified. Assessment: 11:10 General: SEE TRIAGE NOTE. bp 12:17 Reassessment: No changes from previously documented assessment. Patient and/or family bp updated on plan of care and expected duration. Pain level reassessed. 13:32 Reassessment: No changes from previously documented assessment. Patient and/or family bp updated on plan of care and expected duration. Pain level reassessed. 15:00 Reassessment: No changes from previously documented assessment. Patient and/or family bp updated on plan of care and expected duration. Pain level reassessed. 16:36 Reassessment: ADMIT COMPLETE, REPORT TO [facility] FOR RM 229. bp Vital Signs: 11:08 BP 166 / 95; Pulse 71; Resp 18; Temp 97.6(O); Pulse Ox 96% on R/A; Weight 90.72 kg; ld1 Height 5 ft. 7 in. (170.18 cm); Pain 0/10; 12:19 BP 131 / 60; Pulse 63; Resp 19; Pulse Ox 95% ; bp 13:32 BP 157 / 79; Pulse 66; Resp 21; Pulse Ox 100% ; bp 14:30 BP 158 / 68; Pulse 65; Resp 20; Pulse Ox 99% ; bp 15:30 BP 133 / 90; Pulse 68; Resp 18; Pulse Ox 98% ; bp 11:08 Body Mass Index 31.32 (90.72 kg, 170.18 cm) ld1 ED Course: 11:02 Patient arrived in ED. as 11:02 Jamil Kong MD is Private Physician. as 11:02 Ernie Andrews PA is PHCP. cp 11:02 Ernie Donovan MD is Attending Physician. cp 11:06 Arm band placed on right wrist. ld1 11:10 Triage completed. ld1 11:10 Patient has correct armband on for positive identification. Bed in low position. Call bp light in reach. Side rails up X2. Client placed on continuous cardiac and pulse oximetry monitoring. NIBP monitoring applied. 11:25 Wilfredo Shahid, RN is Primary Nurse. bp 11:30 Inserted saline lock: 20 gauge in left antecubital area, using aseptic technique. Blood bp collected. 12:20 XRAY Chest (1 view) In Process Unspecified. EDMS 15:30 Kenneth Mosley MD is Hospitalizing Provider. cp 16:39 No provider procedures requiring assistance completed. Patient admitted, IV remains in bp place. Patient maintains SpO2 saturation greater than 95% on room air. Administered Medications: 12:01 Not Given (Patient Refused): Aspirin 325 mg PO once bp 15:45 Drug: morphine 4 mg Route: IVP; Infused Over: 4 mins; Site: right antecubital; bp 16:07 Follow up: Response: Pain is decreased bp Medication: 16:37 VIS not applicable for this client. bp Outcome: 15:30 Decision to Hospitalize by Provider. cp 16:37 Admitted to Med/surg accompanied by tech, via wheelchair, room 229, with chart, Report bp called to [facility] 16:37 Condition: stable 16:37 Instructed on the need for admit. 17:01 Patient left the ED. em1 Signatures: Dispatcher [employer] EDMS Lorri Leyva Eric em1 Ernie Andrews PA PA cp Wilfredo Shahid, RN RN bp Aletha Méndez RN RN ld1 Corrections: (The following items were deleted from the chart) 12:19 12:18 Inserted saline lock: bp bp 16:07 11:30 Inserted saline lock: bp bp
--- NOTE | 2022-05-17 15:30 | EDPHYS ---
Physician Documentation [facility] Name: Vidal Garza Age: 89 yrs Sex: Male : 1930 Arrival Date: 05/17/2022 Time: 11:02 Bed 2 Private MD: Jamil Kong S ED Physician Ernie Donovan HPI: 05/17 11:15 This 89 yrs old Unknown Male presents to ER via Ambulatory with complaints of Chest cp Pain. 11:15 The patient or guardian reports chest pain that is located primarily in the anterior cp chest wall, left. 11:15 Onset: suddenly, this morning, awoke patient from sleep about 0400. The pain radiates cp to the left shoulder. Duration: The patient or guardian reports a single episode, improved, "heart feels sore". 11:15 The chest pain is described as aching. cp 11:15 Associated signs and symptoms: Pertinent negatives: cough, diaphoresis, lower extremity cp pain, lower extremity swelling, shortness of breath, syncope. Historical: - Allergies: 11:06 No Known Allergies; ld1 - Home Meds: 11:10 Plavix 75 mg Oral tab 1 tab once daily [Active]; Xarelto 1 mg/mL oral susr 10 mL once ld1 daily [Active]; - PMHx: 11:06 Hyperlipidemia; ld1 11:10 Atrial fibrillation; ld1 - PSHx: 11:06 None; ld1 - Immunization history:: Adult Immunizations up to date, Client reports receiving the 2nd dose of the Covid vaccine. - Social history:: Smoking status: Patient denies any tobacco usage or history of. Patient uses alcohol, occasionally. ROS: 11:20 Constitutional: Negative for body aches, chills, fever, poor PO intake. cp 11:20 Eyes: Negative for injury, pain, redness, and discharge. cp 11:20 Cardiovascular: Positive for chest pain, Negative for edema, palpitations. cp 11:20 Respiratory: Negative for cough, shortness of breath, wheezing. cp 11:20 Abdomen/GI: Negative for abdominal pain, nausea, vomiting, and diarrhea, constipation. 11:20 Neuro: Negative for altered mental status, dizziness, headache, weakness. 11:20 All other systems are negative. Exam: 11:25 Constitutional: The patient appears in no acute distress, alert, awake, comfortable, cp non-diaphoretic, non-toxic, well developed, well nourished. 11:25 Head/Face: Normocephalic, atraumatic. cp 11:25 Eyes: Periorbital structures: appear normal, Conjunctiva: normal, no exudate, no injection, Sclera: 11:25 ENT: External ear(s): are unremarkable, Nose: is normal, Mouth: Lips: moist, Oral cp mucosa: moist, Posterior pharynx: Airway: no evidence of obstruction, patent. 11:25 Chest/axilla: Inspection: normal. 11:25 Cardiovascular: Rate: normal, Rhythm: regular, Edema: is not appreciated, JVD: is not appreciated. 11:25 Respiratory: the patient does not display signs of respiratory distress, Respirations: normal, no use of accessory muscles, no retractions, labored breathing, is not present, Breath sounds: are clear throughout, no decreased breath sounds, no stridor, no wheezing. 11:25 Abdomen/GI: Inspection: abdomen appears normal, Palpation: abdomen is soft and non-tender, in all quadrants. 11:25 Back: pain, is absent, ROM is normal. 11:25 Neuro: Orientation: to person, place \\T\\ time. Mentation: is normal, Motor: moves all fours, strength is normal, Sensation: is normal, Gait: is steady, at a normal pace, without difficulty. Vital Signs: 11:08 BP 166 / 95; Pulse 71; Resp 18; Temp 97.6(O); Pulse Ox 96% on R/A; Weight 90.72 kg; ld1 Height 5 ft. 7 in. (170.18 cm); Pain 0/10; 12:19 BP 131 / 60; Pulse 63; Resp 19; Pulse Ox 95% ; bp 13:32 BP 157 / 79; Pulse 66; Resp 21; Pulse Ox 100% ; bp 14:30 BP 158 / 68; Pulse 65; Resp 20; Pulse Ox 99% ; bp 15:30 BP 133 / 90; Pulse 68; Resp 18; Pulse Ox 98% ; bp 11:08 Body Mass Index 31.32 (90.72 kg, 170.18 cm) ld1 MDM: 11:17 Patient medically screened. cp 13:45 Physician consultation: Nuvia EGAN was contacted at 13:45, regarding cp admission, to the telemetry unit. patient's condition. 15:30 Data reviewed: vital signs, nurses notes, lab test result(s), EKG, radiologic studies, cp CT scan, plain films. 15:30 The patient was given aspirin in the Emergency Department. Test interpretation: by ED cp physician or midlevel provider: ECG, plain radiologic studies. 05/17 11:02 Order name: Basic Metabolic Panel; Complete Time: 12:34 ld1 05/17 11:02 Order name: CBC with Diff; Complete Time: 12:34 ld1 05/17 11:02 Order name: Troponin HS; Complete Time: 12:34 ld1 05/17 11:22 Order name: BNP; Complete Time: 12:34 cp 05/17 11:22 Order name: LFT's; Complete Time: 12:34 cp 05/17 11:26 Order name: CK; Complete Time: 12:34 cp 05/17 12:35 Order name: D-Dimer; Complete Time: 15:27 cp 05/17 12:35 Order name: LAB Add On cp 05/17 12:46 Order name: COVID-19/FLU A+B; Complete Time: 15:27 snw 05/17 13:48 Order name: Urinalysis EDMS 05/17 13:48 Order name: Basic Metabolic Panel EDMS 05/17 13:48 Order name: Basic Metabolic Panel EDMS 05/17 13:48 Order name: CBC with Automated Diff EDMS 05/17 13:48 Order name: CBC with Automated Diff EDMS 05/17 13:48 Order name: CKMB Creatine Kinase MB EDMS 05/17 13:48 Order name: CKMB Creatine Kinase MB EDMS 05/17 13:48 Order name: CKMB Creatine Kinase MB EDMS 05/17 13:48 Order name: CKMB Creatine Kinase MB EDMS 05/17 13:48 Order name: Comprehensive Metabolic Panel EDMS 05/17 13:48 Order name: Comprehensive Metabolic Panel EDMS 05/17 13:48 Order name: Lipid Profile EDMS 05/17 13:48 Order name: Lipid Profile EDMS 05/17 13:48 Order name: Magnesium EDMS 05/17 13:49 Order name: Magnesium EDMS 05/17 13:49 Order name: Phosphorus EDMS 05/17 13:49 Order name: Phosphorus EDMS 05/17 13:49 Order name: Protime (+INR) EDMS 05/17 13:49 Order name: Protime (+INR) EDMS 05/17 13:49 Order name: PTT, Activated Partial Thromb EDMS 05/17 13:49 Order name: PTT, Activated Partial Thromb EDMS 05/17 11:02 Order name: XRAY Chest (1 view); Complete Time: 12:34 ld1 05/17 11:02 Order name: EKG; Complete Time: 11:03 ld1 05/17 11:02 Order name: Cardiac monitoring; Complete Time: 11:21 ld1 05/17 11:02 Order name: EKG - Nurse/Tech; Complete Time: 11:21 ld1 05/17 11:02 Order name: IV Saline Lock; Complete Time: 12:01 ld1 05/17 11:02 Order name: Labs collected and sent; Complete Time: 12:01 ld1 05/17 11:02 Order name: O2 Per Protocol; Complete Time: 11:02 ld1 05/17 11:02 Order name: O2 Sat Monitoring; Complete Time: 11:02 ld1 05/17 13:48 Order name: CONS Physician Consult EDCA 05/17 13:48 Order name: Heart Healthy EDCA 05/17 14:02 Order name: CT Chest For PE Angio cp 05/17 15:09 Order name: CT; Complete Time: 15:27 EDCA 05/17 15:37 Order name: Diet Regular; Complete Time: 15:37 cp Administered Medications: 12:01 Not Given (Patient Refused): Aspirin 325 mg PO once bp 15:45 Drug: morphine 4 mg Route: IVP; Infused Over: 4 mins; Site: right antecubital; bp 16:07 Follow up: Response: Pain is decreased bp Disposition Summary: 05/17/22 15:30 Hospitalization Ordered Hospitalization Status: Observation cp Provider: Kenneth Mosley cp Location: Telemetry/MedSurg (observation) cp Condition: Stable cp Problem: new cp Symptoms: have improved cp Bed/Room Type: Standard cp Room Assignment: 229(05/17/22 15:32) em1 Diagnosis - Unstable angina cp Forms: - Medication Reconciliation Form cp - SBAR form cp Addendum: 05/20/2022 07:58 Co-signature as Attending Physician, Ernie Donovan MD I agree with the assessment and c agee plan of care. Signatures: Dispatcher [employer] EDErnie Christensen MD MD cha Martinez, Eric em1 Ernie Andrews PA PA cp Wilfredo Shahid RN RN Aletha Moreno RN RN ld1 Corrections: (The following items were deleted from the chart) 05/17 15:32 15:30 cp em1 05/18 16:42 12 11:15 The patient or guardian reports chest pain that is located primarily in the cp anterior chest wall, left, cp 05/18 16:42 12 11:15 The pain does not radiate. cp cp 05/18 16:42 12 11:15 Duration: The patient or guardian reports a single episode, that is now cp resolved, cp
[2022-05-17] MEDS ORDERED: MORPHINE 4 MG/ML SYR ONE (15:50)
[2022-05-17] MEDS: INSULIN -REGULAR HUMAN 50 UNIT/0.5 ML ML SQ SCH ×2 (16:30→21:00)
[2022-05-17] MEDS ORDERED: RIVAROXABAN 20 MG TABLET PO SCH (17:00)
[2022-05-17 17:48] VITALS: BMI 31.3
[2022-05-17] MEDS ORDERED: PNEUMOCOCCAL VACCINE 0.5 ML IMVAC ONE (18:00)
[2022-05-17] MEDS ORDERED: APIXABAN 5 MG TABLET PO SCH (21:00)
[2022-05-18 05:44] LABS: Absolute Lymphocytes (CBC) 1.3 K/uL (0.7-4.9); Hematocrit 40.9 % (39.6-49.0); Lymphocytes % 18.5 % (15.3-44.8); MCV 87.9 fL (80-100); RBC Red Blood Cell Count 4.65 M/uL (4.33-5.43)
[2022-05-18 06:01] LABS: Protime INR 1.73
[2022-05-18 06:04] LABS: Albumin 3.6 g/dL (3.4-5.0); Bilirubin Total 0.8 mg/dL (0.2-1.0); Magnesium 2.2 mg/dL (1.8-2.4); Phosphorus 3.3 mg/dL (2.5-4.9); Protein, Total 7.5 g/dL (6.4-8.2)
[2022-05-18] MEDS: INSULIN -REGULAR HUMAN 50 UNIT/0.5 ML ML SQ SCH ×2 (07:30→11:30)
--- NOTE | 2022-05-18 07:53 | EKG ---
Test Date: 2022-05-17 Test Time: 11:14:29 Client Development Director: AYO MEASUREMENT RESULTS: Intervals: Rate: 70 [place]: 180 QRSD: 148 QT: 430 QTc: 464 [place]: P: 46 [place]: 180 QRS: -60 T: 39 INTERPRETIVE STATEMENTS: Sinus rhythm with occasional premature ventricular complexes Right bundle branch block Left anterior fascicular block Bifascicular block Abnormal ECG Compared to ECG 03/28/2018 11:31:13 Ventricular premature complex(es) now present Bifascicular block still present Electronically Signed On 05-18-22 07:49:14 TIE MAN by Jamil Kong
[2022-05-18] MEDS ORDERED: CLOPIDOGREL 75 MG TABLET PO SCH (09:00)
[2022-05-18] MEDS ORDERED: ENOXAPARIN 40 MG/0.4 ML SQ SCH (09:00)
[2022-05-18 10:12] VITALS: O2SAT 93
[2022-05-18 12:27] VITALS: BP 146/66; TEMP 97.3
--- NOTE | 2022-05-18 14:22 | P.DS ---
Discharge Date: 05/18/22 Disposition: AMA-LEFT AGAINST MEDICAL ADVIC Reason for Admission: chest pain that awoke pt from sleep Brief History of Present Illness: Mr. Garza is an 89 yo gentleman with a history of CAD, aneurysm repair, a. fib that no longer has a PCP. At 0300 he had left upper back, arm, shoulder pain that was so severe it awoke him from sleep and "took his breath". Pt called Dr. Kong's office and was directed to the ED. Pt to be admitted for chest pain evaluation. Hospital Course: Patient was clinically doing well. Pt decided to leave AMA Vital Signs/Physical Exam: Temp Pulse Resp BP Pulse Ox 97.3 F 67 16 146/66 H 93 05/18/22 12:00 05/18/22 12:00 05/18/22 12:00 05/18/22 12:00 05/18/22 12:00 General: Alert, In no apparent distress, Oriented x3 Laboratory Data at Discharge: WBC 7.10 K/uL (4.3-10.9) 05/18/22 04:58 Hgb 14.0 g/dL (13.6-17.9) 05/18/22 04:58 Hct 40.9 % (39.6-49.0) 05/18/22 04:58 Plt Count 197 K/uL (152-406) 05/18/22 04:58 PT 19.0 SECONDS (9.5-12.5) H 05/18/22 04:58 INR 1.73 05/18/22 04:58 APTT 36.9 SECONDS (24.3-36.9) 05/18/22 04:58 Sodium 138 mmol/L (136-145) 05/18/22 04:58 Potassium 4.0 mmol/L (3.5-5.1) 05/18/22 04:58 BUN 14 mg/dL (7-18) 05/18/22 04:58 Creatinine 0.96 mg/dL (0.55-1.3) 05/18/22 04:58 Glucose 111 mg/dL (74-106) H 05/18/22 04:58 Phosphorus 3.3 mg/dL (2.5-4.9) 05/18/22 04:58 Magnesium 2.2 mg/dL (1.8-2.4) 05/18/22 04:58 Total Bilirubin 0.8 mg/dL (0.2-1.0) 05/18/22 04:58 AST 19 U/L (15-37) 05/18/22 04:58 ALT 22 U/L (12-78) 05/18/22 04:58 Alkaline Phosphatase 66 U/L (45-117) 05/18/22 04:58 Triglycerides 100 mg/dL (<150) 05/18/22 04:58 Cholesterol 146 mg/dL (<200) 05/18/22 04:58 HDL Cholesterol 40 mg/dL (40-60) 05/18/22 04:58 Cholesterol/HDL Ratio 3.65 05/18/22 04:58 Home Medications: Metoprolol Succinate [Toprol Xl*] 100 mg PO DAILY AFTER SUPPER 08/22/18 Atorvastatin Calcium [Lipitor] 20 mg PO BEDTIME 07/17/21 Ranitidine [Zantac] 150 mg PO PRN PRN 07/17/21 Rivaroxaban [Xarelto] 20 mg PO DAILY AFTER SUPPER 07/17/21 Clopidogrel Bisulfate [Plavix] 75 mg PO 05/17/22 Physician Discharge Instructions: -Patient left AGAINST MEDICAL ADVICE -Follow-up with PCP in 1 to 2 weeks -Follow-up with Cardiology in 1 to 2 weeks -Please call Dr. Mosley at [phone] if any questions regarding hospital stay -Please call nursing station at [phone] if any nursing or medication questions -Return to the emergency room if symptoms worsen Diet: AHA Followup: Jamil Kong MD [Primary Care Provider] - Time spent managing pt's care (in minutes): 15
--- NOTE | 2022-05-21 06:29 | CON ---
Date of Consultation: 05/18/2022 Reason For Consultation: Chest pain. History Of Present Illness: Mr. Vidal Garza is an 89-year-old white male, he is very well known to me. He has had a history of CABG. In the July of 2021, catheterization showed small RCA, a tota lly-occluded LAD with the SONG that is patent to the LAD. He had an OM graft that had a 90% stenosis distal to the stent in his OM graft. He has done well since. He really comes in with atypical ches t pain. I found it more pleuritic, left-sided, more on the shoulder without any nausea, vomiting, di aphoresis, PND, orthopnea, pedal edema, palpitation, or syncope. His BNP was 474. His troponin was negative. D-dimer was negative with a negative CTA. EKG was negative. Chest x-ray is negative. He is feeling better today. Past Medical History: Includes coronary artery disease, status post CABG and status post recent sten t in July of 2021. His other problems include hypertension, dyslipidemia, and paroxysmal atrial fibrillation, for which he takes Xarelto. Allergies: NONE. Review of Systems: Negative. Social History: Negative. Family History: Negative. Medications: At home include Xarelto, metoprolol, Plavix, and Lipitor. Physical Examination: General: He is pleasant as usual. Vital Signs: Stable, afebrile. Sinus rhythm. HEENT: Negative. Neck: Supple with no bruit. Chest: Clear to auscultation and percussion. Cardiac: Exam revealed a regular rhythm and rate. No murmurs, gallops, or rubs. Abdomen: Benign. Extremities: No clubbing, cyanosis, or edema. Diagnostic Data: As stated earlier. Impression And Plan: Atypical chest pain in a patient with recent stent, history of coronary artery bypass graft in the past. Myocardial infarction has been ruled out. EKG is normal. Chest x-ray is normal. BNP is slightly elevated. D-dimer is elevated with a negative CTA. I still believe that th is is pleuritic chest pain. I do not think this is cardiac. Nevertheless, I will continue with pres ent regimen. I would add Imdur to his regimen. Continue the metoprolol. I will make an arrangement for an outpatient Lexiscan in the very near future. He has paroxysmal atrial fibrillation. He is i n sinus rhythm, now on metoprolol and Xarelto. He has dyslipidemia, for which he takes Lipitor. NATALIE/GARLAND Voice ID: [id number] Report ID: [id number]
== END 2022-05-18 14:07 | disposition left against medical advice (07) | DRG 313 ==
LOC: ER 11:01 → ERHOLD 13:44 → 2ND 15:58
PROVIDERS: ADMIT Hospitalist; ATTEND Hospitalist
DX: R07.89 Other chest pain (principal); E78.5 Hyperlipidemia, unspecified; I48.0 Paroxysmal atrial fibrillation; K21.9 Gastro-esophageal reflux disease without esophagitis; I25.10 Atherosclerotic heart disease of native coronary artery without angina pectoris; Z95.0 Presence of cardiac pacemaker; Z95.1 Presence of aortocoronary bypass graft; Z79.02 Long term (current) use of antithrombotics/antiplatelets; Z79.01 Long term (current) use of anticoagulants; Z53.29 Procedure and treatment not carried out because of patient's decision for other reasons; Z90.49 Acquired absence of other specified parts of digestive tract; Z79.899 Other long term (current) drug therapy; Z20.822 Contact with and (suspected) exposure to COVID-19
CPT/HCPCS: 0240U; 36415; 71045; 71275; 74175; 80048; 80053; 80061; 80076; 82550; 82553; 82947; 83735; 83880; 84100; 84484; 85025; 85379; 85610; 85730; 93005; 94760; 96374; 99285; Q9967